=== PATIENT | male | born 1995 | race Caucasian/White ===

== ENCOUNTER 2017-08-23 19:31 | Emergency (ER) | payer OTHER ==
[~2017-08-23] VITALS: Ht 175.3 cm; Wt 84.4 kg
[~2017-08-23 19:31] MED LIST: ALBU90OI INH; AZIT250 PO; Amoxicillin500 MG PO; CEPH250A PO; CEPH500 PO; CYCL10 PO; Clotrimazole AF30 GM TP; Esgic Tablet1 EACH PO; Flonase 0.05% N16 GM; HYDACE5 PO; IBUP400 PO; IBUP600 PO; IBUP800 PO; IBUPROFEN; Imitrex100 MG PO; Imitrex25 MG PO; Imitrex50 MG PO; KETO10 PO; LIDO5TP TOP; Mobic15 MG PO; Mucinex600 MG PO; NAPR550 PO; Naprosyn500 MG PO; Norco 5-325 Ta1 EACH PO; ONDA4ODT MM; PROC10 PO; PROM25 PO; Q-Tussin100 MG/5 M PO; Robaxin-750750 MG PO; Sudogest30 MG PO; Vibramycin100 MG PO; Zofran Odt4 MG SL; Zofran4 MG PO; Zofran8 MG PO
== END 2017-08-23 20:46 | disposition home or self-care (01) ==
LOC: ER 19:31
DX: M25.511 Pain in right shoulder (principal); F17.200 Nicotine dependence, unspecified, uncomplicated; Z88.2 Allergy status to sulfonamides; W05.2XXA Fall from non-moving motorized mobility scooter, initial encounter
CPT/HCPCS: 73030; 99283

== ENCOUNTER 2018-12-29 11:09 | Emergency (ER) | payer OTHER ==
[~2018-12-29] VITALS: Ht 175.3 cm; Wt 82.1 kg
[2018-12-29] MEDS ORDERED: LIDO700A20 TOP (11:43)
[2018-12-29] MEDS ORDERED: Robaxin500 MG PO (11:43)
[2018-12-29] MEDS ORDERED: NAPR550 PO (11:43)
== END 2018-12-29 11:53 | disposition home or self-care (01) ==
LOC: ER 11:09
DX: M62.830 Muscle spasm of back (principal); F17.200 Nicotine dependence, unspecified, uncomplicated; Z88.2 Allergy status to sulfonamides
CPT/HCPCS: 99283

== ENCOUNTER 2019-01-13 06:18 | Emergency (ER) | payer OTHER ==
[~2019-01-13] VITALS: Ht 175.3 cm; Wt 81.7 kg
[~2019-01-13 06:18] MED LIST changes: +LIDO700A20 TOP; +Robaxin500 MG PO
== END 2019-01-13 07:00 | disposition home or self-care (01) ==
LOC: ER 06:18
DX: L72.8 Other follicular cysts of the skin and subcutaneous tissue (principal); F17.200 Nicotine dependence, unspecified, uncomplicated; Z88.2 Allergy status to sulfonamides
CPT/HCPCS: 99282

== ENCOUNTER 2019-01-22 09:08 | Emergency (ER) | payer OTHER ==
[~2019-01-22] VITALS: Ht 175.3 cm; Wt 81.7 kg
[2019-01-22] MEDS ORDERED: IBUP800 PO (10:09)
[2019-01-22] MEDS ORDERED: Nyamyc15 GM TOP (10:09)
== END 2019-01-22 10:16 | disposition home or self-care (01) ==
LOC: ER 09:08
DX: B37.49 Other urogenital candidiasis (principal); F17.210 Nicotine dependence, cigarettes, uncomplicated; Z88.2 Allergy status to sulfonamides
CPT/HCPCS: 99282

== ENCOUNTER 2019-01-26 00:23 | Emergency (ER) | payer OTHER ==
[~2019-01-26] VITALS: Ht 175.3 cm; Wt 81.7 kg
[~2019-01-26 00:23] MED LIST changes: +Nyamyc15 GM TOP
== END 2019-01-26 02:21 | disposition home or self-care (01) ==
LOC: ER 00:23
DX: B35.6 Tinea cruris (principal); B37.2 Candidiasis of skin and nail; Z88.2 Allergy status to sulfonamides; F17.210 Nicotine dependence, cigarettes, uncomplicated
CPT/HCPCS: 99282

== ENCOUNTER 2019-02-06 22:38 | Emergency (ER) | payer OTHER ==
[~2019-02-06] VITALS: Ht 175.3 cm; Wt 83.9 kg
[2019-02-06] MEDS ORDERED: BENZ100A PO (23:11)
== END 2019-02-06 23:26 | disposition home or self-care (01) ==
LOC: ER 22:38
DX: J06.9 Acute upper respiratory infection, unspecified (principal); Z88.2 Allergy status to sulfonamides; Z79.899 Other long term (current) drug therapy; F17.210 Nicotine dependence, cigarettes, uncomplicated
CPT/HCPCS: 99283